=== PATIENT | female | born 1990 | race Caucasian/White ===

== ENCOUNTER 2020-05-03 15:55 | Emergency (ER) | payer MEDICAID ==
[~2020-05-03] VITALS: Ht 167.6 cm; Wt 104.5 kg
[2020-05-03 15:59] VITALS: BP 102/62
== END 2020-05-03 16:28 | disposition home or self-care (01) ==
LOC: EMS 15:55
DX: K02.9 Dental caries, unspecified (principal)
CPT/HCPCS: 99283; Z7502

== ENCOUNTER 2020-12-17 20:56 | Emergency (ER) | payer MEDICAID, OTHER ==
[~2020-12-17] VITALS: Ht 167.6 cm; Wt 88.2 kg
[2020-12-17] MEDS ORDERED: LIDOCAINE 2%/EPI 1:200,000/PF 10 ML VIAL ID ONE (23:15)
[2020-12-17] MEDS ORDERED: LIDOCAINE 2%/EPI 1:200,000/PF 20 ML VIAL ID ONE (23:30)
[2020-12-18] MEDS ORDERED: MORPHINE SULFATE 4 MG/ML SYRINGE IM ONE (00:15)
[2020-12-18 01:30] VITALS: BP 122/65
== END 2020-12-18 01:42 | disposition home or self-care (01) ==
LOC: EMS 20:59
DX: L02.213 Cutaneous abscess of chest wall (principal)
CPT/HCPCS: 10060; 96372; 99283; J2270; 96374